=== PATIENT | female | born 1980 | race African-American/Black ===

== ENCOUNTER 2020-10-18 17:17 | Emergency (ER) | payer SELFPAY ==
--- NOTE | 2020-10-18 17:32 | EDM.PDOC ---
ED HPI GENERAL MEDICAL PROBLEM - General Chief Complaint: Abdominal Pain Stated Complaint: ABDOMINAL PAIN Time Seen by Provider: 10/18/20 17:30 Source of Information: Reports: Patient History Limitations: Reports: No Limitations - History of Present Illness INITIAL COMMENTS - FREE TEXT/NARRATIVE: HISTORY AND PHYSICAL: History of present illness: Patient is a 39-year-old female who presents to the emergency room with complaints of epigastric pain, nausea and vomiting x3 days. She states she has been taking some Pepto-Bismol for her GI upset and shortly afterwards noticed he r eyes were jaundiced. She came to the emergency room as she wanted to make sure the medication was not causing this. States she has no previous history of liver/GI problems. Patient denies any fever, chills, headache, change in vision, syncope or near syncope. Denies any chest pain, back pain, shortness of breath or cough. Denies any diarrhea, constipation or dysuria. Currently on menses, no concern for . Has not noted any blood in emesis, urine or stool. *SINHAL[employer] SPEAKING -declines the need for assistant production editor, at bedside translating. Review of systems: As per history of present illness and below otherwise all systems reviewed and negative. Past medical history: As per history of present illness and as reviewed below otherwise noncontributory. Surgical history: As per history of present illness and as reviewed below otherwise noncontributory. Social history: See social history for further information Family history: As per history of present illness and as reviewed below otherwise noncontributory. Physical exam: General: Well developed and well nourished a 9-year-old black female. Alert and orientated x 3. Nontoxic in appearance and in no acute distress. Vital signs are stable and have been reviewed by me. Nursing notes were reviewed. HEENT: Atraumatic, normocephalic, pupils equal and reactive bilaterally, negative for conjunctival pallor. + Bilateral scleral icterus, mucous membranes moist, TMs normal bilaterally, throat clear, neck supple, nontender, trachea midline. No drooling or trismus noted. No meningeal signs. No hot potato voice noted. Lungs: Clear to auscultation bilaterally. No wheezes, rales, or rhonchi. Chest nontender. Normal work of breathing, no accessory muscles used. Heart: S1S2, regular rate and rhythm without overt murmur, gallops, or rubs. No JVD. No peripheral edema Abdomen: Soft, nondistended, LUQ/RUQ and epigastric tenderness. Normoactive bowel sounds. Negative for masses or costovertebral tenderness. Pelvis: Stable nontender. Genitourinary/Rectal: Deferred. Skin: Intact, warm, dry. No lesions or rashes noted. Hematologic: No petechiae or purpra. Mucosa appropriate color and normal nail bed color and refill. Extremities: Atraumatic, moves all extremities per self without difficulty or deficits, negative for cords or calf pain. Neurovascular unremarkable. Neuro: Awake, alert, oriented. Cranial nerves II through XII unremarkable. Cerebellum unremarkable. Motor and sensory unremarkable throughout. Exam nonfocal. Psychiatric: Mood and affect are appropriate. Normal thought process. Answering questions appropriately. Notes: *This patient was seen and evaluated during the 2019 SARS-CoV-2 novel coronavirus pandemic period. Community viral transmission is ongoing at time of this encounter and the emergency department is operating under pandemic response procedures. AST 216, ALT 506. Hepatitis panel has been added; this is a send out. CT abdomen and pelvis shows cholelithiasis, gallbladder distention, and mild pericholecystic fluid concerning for acute calculous cholecystitis. Gallbladder ultrasound is recommended for confirmation. Mild intrahepatic and extrahepatic biliary dilatation. Obstructive choledocholithiasis not excluded. Consider follow-up MRCP. 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 These findings can be associated with chronic lower abdominal/pelvic pain. Correlate clinically. I have talked with the patient about today's findings, in addition to providing specific details for plan of care. Reassessment at the time of disposition demonstrates that the patient is still having some abdominal pain. Dr. Goncalves, general surgeon on-call was consulted on this patient. She feels this patient needs to go to [facility] for further care/evaluation and possible ERCP. Spoke with Dr Chauhan (surgeon) and Dr Hay (hospitalist) who is agreeable to excepting this patient for further care and management. Patient will be a direct admit to [address] [place] [address]. Patient and are aware of need for transfer and are agreeable. Patient's vital signs remained stable. Diagnostics: CBC, CMP, Lipase, UA, HCGU, CT abd/pelvis, Hepatitis panel Therapeutics: IV fluids, Protonix, GI cocktail, Zofran, Morphine, Zosyn Impression: Cholecystitis Plan: Ground transfer to [facility] Definitive disposition and diagnosis as appropriate pending reevaluation and review of above. Epigastric Pain Score (Numeric/FACES): 10 - Related Data Allergies Allergy/AdvReac Type Severity Reaction Status Date / Time No Known Allergies Allergy Verified 10/18/20 17:44 Home Meds: Home Meds . [No Known Home Meds] 10/18/20 [History] ED ROS GENERAL - Review of Systems Review Of Systems: Comprehensive ROS is negative, except as noted in HPI. ED EXAM, GI/ABD - Physical Exam Exam: See Below (See dictation) Course - Vital Signs Last Recorded V/S: Last Vital Signs Temp 98.2 F 10/18/20 17:44 Pulse 89 10/18/20 17:44 Resp 18 10/18/20 17:44 BP 145/101 H 10/18/20 17:44 Pulse Ox 98 10/18/20 17:44 - Orders/Labs/Meds Orders: Active Orders 24 hr Category Date Time Status EKG Documentation Completion [RC] STAT Care 10/18/20 17:39 Active CULTURE URINE [RM] Stat Lab 10/18/20 17:43 Received HEPATITIS PANEL (4) [REF] Stat Lab 10/18/20 18:25 Ordered Labs: Laboratory Tests 10/18/20 10/18/20 10/18/20 Range/Units 17:42 17:42 17:43 WBC 5.11 (4.0-11.0) K/uL RBC 4.08 L (4.30-5.90) M/uL Hgb 11.2 L (12.0-16.0) g/dL Hct 33.4 L (36.0-46.0) % MCV 81.9 (80.0-98.0) fL MCH 27.5 (27.0-32.0) pg MCHC 33.5 (31.0-37.0) g/dL RDW Std Deviation 44.0 (28.0-62.0) fl RDW Coeff of Carly 15 (11.0-15.0) % Plt Count 380 (150-400) K/uL MPV 10.70 (7.40-12.00) fL Neut % (Auto) 56.5 (48.0-80.0) % Lymph % (Auto) 33.5 (16.0-40.0) % [place] % (Auto) 7.4 (0.0-15.0) % Eos % (Auto) 2.0 (0.0-7.0) % Baso % (Auto) 0.6 (0.0-1.5) % Neut # (Auto) 2.9 (1.4-5.7) K/uL Lymph # (Auto) 1.7 (0.6-2.4) K/uL [place] # (Auto) 0.4 (0.0-0.8) K/uL Eos # (Auto) 0.1 (0.0-0.7) K/uL Baso # (Auto) 0.0 (0.0-0.1) K/uL Nucleated RBC % 0.0 /100WBC Nucleated RBCs # 0 K/uL Sodium 138 (136-145) mmol/L Potassium 3.2 L (3.5-5.1) mmol/L Chloride 99 (98-107) mmol/L Carbon Dioxide 28.4 (21.0-32.0) mmol/L BUN 13 (7.0-18.0) mg/dL Creatinine 0.8 (0.6-1.0) mg/dL Est Cr Clr Drug Dosing 74.67 mL/min Estimated GFR (MDRD) > 60.0 ml/min Glucose 89 (74-106) mg/dL Calcium 9.7 (8.5-10.1) mg/dL Total Bilirubin 3.7 H (0.2-1.0) mg/dL AST 216 H (15-37) IU/L ALT 506 H (14-63) IU/L Alkaline Phosphatase 95 (46-116) U/L Troponin I < 0.050 (0.000-0.056) ng/mL Total Protein 8.7 H (6.4-8.2) g/dL Albumin 3.8 (3.4-5.0) g/dL Globulin 4.9 H (2.6-4.0) g/dL Albumin/Globulin Ratio 0.8 L (0.9-1.6) Lipase 125 (73-393) U/L Urine Color DARK YELLOW Urine Appearance CLEAR Urine pH 5.5 (5.0-8.0) Ur Specific [place] 1.015 (1.001-1.035) Urine Protein NEGATIVE (NEGATIVE) mg/dL Urine Glucose (UA) NEGATIVE (NEGATIVE) mg/dL Urine Ketones TRACE H (NEGATIVE) mg/dL Urine Occult Blood LARGE H (NEGATIVE) Urine Nitrite NEGATIVE (NEGATIVE) Urine Bilirubin MODERATE H (NEGATIVE) Urine Ictotest POSITIVE Urine Urobilinogen 0.2 (<2.0) EU/dL Ur Leukocyte Esterase TRACE H (NEGATIVE) Urine RBC 12-16 (0-2/HPF) Urine WBC 0-3 (0-5/HPF) Ur Epithelial Cells OCCASIONAL (NONE-FEW) Amorphous Sediment FEW (NEGATIVE) Urine Bacteria FEW (NEGATIVE) Urine Mucus FEW (NONE-MOD) Urine HCG, Qual (NEGATIVE) 10/18/20 Range/Units 17:43 WBC (4.0-11.0) K/uL RBC (4.30-5.90) M/uL Hgb (12.0-16.0) g/dL Hct (36.0-46.0) % MCV (80.0-98.0) fL MCH (27.0-32.0) pg MCHC (31.0-37.0) g/dL RDW Std Deviation (28.0-62.0) fl RDW Coeff of Carly (11.0-15.0) % Plt Count (150-400) K/uL MPV (7.40-12.00) fL Neut % (Auto) (48.0-80.0) % Lymph % (Auto) (16.0-40.0) % [place] % (Auto) (0.0-15.0) % Eos % (Auto) (0.0-7.0) % Baso % (Auto) (0.0-1.5) % Neut # (Auto) (1.4-5.7) K/uL Lymph # (Auto) (0.6-2.4) K/uL [place] # (Auto) (0.0-0.8) K/uL Eos # (Auto) (0.0-0.7) K/uL Baso # (Auto) (0.0-0.1) K/uL Nucleated RBC % /100WBC Nucleated RBCs # K/uL Sodium (136-145) mmol/L Potassium (3.5-5.1) mmol/L Chloride (98-107) mmol/L Carbon Dioxide (21.0-32.0) mmol/L BUN (7.0-18.0) mg/dL Creatinine (0.6-1.0) mg/dL Est Cr Clr Drug Dosing mL/min Estimated GFR (MDRD) ml/min Glucose (74-106) mg/dL Calcium (8.5-10.1) mg/dL Total Bilirubin (0.2-1.0) mg/dL AST (15-37) IU/L ALT (14-63) IU/L Alkaline Phosphatase (46-116) U/L Troponin I (0.000-0.056) ng/mL Total Protein (6.4-8.2) g/dL Albumin (3.4-5.0) g/dL Globulin (2.6-4.0) g/dL Albumin/Globulin Ratio (0.9-1.6) Lipase (73-393) U/L Urine Color Urine Appearance Urine pH (5.0-8.0) Ur Specific [place] (1.001-1.035) Urine Protein (NEGATIVE) mg/dL Urine Glucose (UA) (NEGATIVE) mg/dL Urine Ketones (NEGATIVE) mg/dL Urine Occult Blood (NEGATIVE) Urine Nitrite (NEGATIVE) Urine Bilirubin (NEGATIVE) Urine Ictotest Urine Urobilinogen (<2.0) EU/dL Ur Leukocyte Esterase (NEGATIVE) Urine RBC (0-2/HPF) Urine WBC (0-5/HPF) Ur Epithelial Cells (NONE-FEW) Amorphous Sediment (NEGATIVE) Urine Bacteria (NEGATIVE) Urine Mucus (NONE-MOD) Urine HCG, Qual NEGATIVE (NEGATIVE) Meds: Medications Discontinued Medications Generic Name Dose Route Start Last Admin Trade Name Freq PRN Reason Stop Dose Admin Al Hydroxide/Mg Hydroxide 15 0 ml 10/18/20 17:39 10/18/20 18:00 ml/ Metoclopramide HCl 5 mg/ PO 10/18/20 17:40 1 each Lidocaine HCl 5 ml ONETIME ONE Administration Sodium Chloride 1,000 mls @ 999 mls/hr 10/18/20 17:39 10/18/20 18:00 Normal Saline IV 10/18/20 18:39 999 mls/hr STAT ONE Administration Pantoprazole Sodium 80 mg/ 20 mls @ 420 mls/hr 10/18/20 17:39 10/18/20 18:00 Sodium Chloride IVPUSH 10/18/20 17:41 420 mls/hr ONETIME ONE Administration Iopamidol 100 ml 10/18/20 18:47 10/18/20 18:47 Iopamidol 755 Mg/Ml 500 Ml Multipack Bottle IVPUSH 10/18/20 18:48 100 ml ONETIME ONE Administration Morphine Sulfate 4 mg 10/18/20 17:44 10/18/20 18:00 Morphine 4 Mg/Ml Syringe IVPUSH 10/18/20 17:45 4 mg ONETIME ONE Administration Ondansetron HCl 4 mg 10/18/20 17:39 10/18/20 18:01 Ondansetron 4 Mg/2 Ml Sdv IVPUSH 10/18/20 17:40 4 mg ONETIME ONE Administration Departure - Departure Time of Disposition: 20:12 Disposition: DC/Tfer to Acute Hospital 02 Clinical Impression: Cholecystitis - Discharge Information Referrals: PCP,None [Primary Care Provider] - Forms: ED Department Discharge Sepsis Event Note (ED) - Focused Exam Vital Signs: Vital Signs Temp Pulse Resp BP Pulse Ox 10/18/20 17:44 98.2 F 89 18 145/101 H 98 - My Orders Last 24 Hours: My Active Orders 10/18/20 17:39 EKG Documentation Completion [RC] STAT 10/18/20 17:43 CULTURE URINE [RM] Stat 10/18/20 18:25 HEPATITIS PANEL (4) [REF] Stat - Assessment/Plan Last 24 Hours: My Active Orders 10/18/20 17:39 EKG Documentation Completion [RC] STAT 10/18/20 17:43 CULTURE URINE [RM] Stat 10/18/20 18:25 HEPATITIS PANEL (4) [REF] Stat
[2020-10-18] MEDS ORDERED: Alum Hydrox/Mag Hydrox/Simeth 15 ML, Metoclopramide 5 MG, Lidocaine 2% 5 ML PO ONE ×3 (17:39)
[2020-10-18] MEDS ORDERED: Ondansetron 4 MG/2 ML SDV IVPUSH ONE (17:39)
[2020-10-18] MEDS ORDERED: Sodium Chloride 0.9% 1,000 ML IV ONE (17:39)
[2020-10-18] MEDS ORDERED: Pantoprazole 80 MG in Sodium Chloride 0.9% 20 ML IVPUSH ONE (17:39)
[2020-10-18] MEDS ORDERED: Morphine 4 MG/ML Syringe IVPUSH ONE (17:44)
--- NOTE | 2020-10-18 18:05 | PCM.EKG ---
#1 Interpretation EKG Date: 10/18/20 Time: 18:00 Rhythm: NSR Rate (Beats/Min): 87 QT: Normal
[2020-10-18 18:17] LABS: BLOOD UREA NITROGEN,BUN 13 mg/dL (7.0-18.0); CARBON DIOXIDE,CO2 28.4 mmol/L (21.0-32.0); CHLORIDE,CL 99 mmol/L (98-107); GLUCOSE RANDOM 89 mg/dL (74-106); LIPASE 125 U/L (73-393); POTASSIUM,K 3.2 mmol/L (3.5-5.1); SODIUM,NA 138 mmol/L (136-145)
[2020-10-18] MEDS ORDERED: Iopamidol 755 MG/ML 500 ML Multipack Bottle IVPUSH ONE (18:47)
--- NOTE | 2020-10-18 19:32 | CT ---
Indication: Epigastric pain x3 days Technique: Contrast enhanced axial CT imaging through the abdomen and pelvis. 100 mL Isovue 370 contrast agent was administered intravenously. Sagittal and coronal reconstructions are provided. Comparison: None Findings: The gallbladder is distended. There is mild pericholecystic fluid, raising concern for cholecystitis. Small hyperdense stones are seen layering in the gallbladder fundus. The common bile duct is mildly enlarged, measuring approximately 7 mm. There is also mild intrahepatic biliary dilatation. The liver is otherwise unremarkable. No abnormalities are demonstrated relating to the spleen, pancreas, adrenal glands, and kidneys. A small renal cortical cysts noted in the left lower pole. The portal vein, hepatic veins, IVC, and renal veins are patent. There is normal caliber of the abdominal aorta. There is no abdominal lymphadenopathy. The stomach and duodenum are unremarkable. There is no small bowel wall thickening or abnormal distention. The appendix is not visualized. There is no colonic wall thickening, mesenteric edema, or intraperitoneal free fluid. Moderate stool is seen throughout the colon. The urinary bladder, uterus, and ovaries are unremarkable. There are bilateral pelvic varices, process on the left. The left ovarian vein is enlarged, measuring up to 8 mm. The osseous structures are unremarkable. The included lung bases are clear. Impression: 1. Cholelithiasis, gallbladder distention, and mild pericholecystic fluid concerning for acute calculous cholecystitis. Gallbladder ultrasound is recommended for confirmation. 2. Mild intrahepatic and extrahepatic biliary dilatation. Obstructive choledocholithiasis not excluded. Consider follow-up MRCP. 3. 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 These findings can be associated with chronic lower abdominal/pelvic pain. Correlate clinically. Please note that all CT scans at this facility use dose modulation, iterative reconstruction, and/or weight-based dosing when appropriate to reduce radiation dose to as low as reasonably achievable. Dictated by Satya Valverde MD @ Oct 18 2020 7:21PM Signed by Dr. Satya Valverde @ Oct 18 2020 7:32PM
[2020-10-18] MEDS ORDERED: Piperacillin/Tazobactam 3.375 GM in Sodium Chloride 0.9% 50 ML IV ONE (20:14)
== END 2020-10-18 20:55 ==
LOC: MW.ED 17:17 → EDBD 17:17 → MW.ED 20:55
DX: K81.9 Cholecystitis, unspecified (principal)
CPT/HCPCS: 36415; 74177; 80053; 80074; 81001; 81025; 83690; 84484; 85025; 87086; 93005; 96365; 96375; 99285; A9270; C9113; J2270; J2405; J2543; J7030; Q9967